=== PATIENT | male | born 2005 | race Two or more races ===

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

== ENCOUNTER 2023-01-26 16:53 | Emergency (ER) | payer MEDICAID ==
[~2023-01-26] VITALS: Ht 149.9 cm; Wt 50.6 kg
[~2023-01-26 16:53] MED LIST changes: +BACI50OI TOP; +BACTDSTA PO; +MED REC COMMENT; +PRAZ1CAP PO
[2023-01-26] MEDS ORDERED: ACETAMINOPHEN TAB 650MG DOSE (2X325MG) PO ONE (19:20)
[2023-01-26 20:46] LABS: HEMATOCRIT 43.6 % (42.0-52.0); HEMOGLOBIN 14.8 g/dl (13.5-17.5); MEAN CORPUSCULAR HEMOGLOBIN 30.3 pg (27.0-33.0); MEAN CORPUSCULAR HGB CONC 33.9 g/dl (32.0-36.5); MEAN CORPUSCULAR VOLUME 89.2 fl (80.0-96.0); PLATELET COUNT, AUTOMATED 231 10^3/uL (150-450); RED BLOOD COUNT 4.89 10^6/uL (4.30-6.10); WHITE BLOOD COUNT 8.2 10^3/uL (4.0-10.0)
[2023-01-26 21:09] LABS: ETHYL ALCOHOL (ETHANOL) < 0.003 % (0.000-0.010)
[2023-01-26 21:11] LABS: SALICYLATE LEVEL < 3.0 MG/DL (<30)
[2023-01-26 21:13] LABS: THYROID STIMULATING HORMONE 0.227 uIU/ML (0.48-4.17)
[2023-01-26 21:32] LABS: ALBUMIN 3.5 G/DL (3.2-5.2); ALKALINE PHOSPHATASE 210 U/L (46-116); ALT/SGPT 1538 U/L (7.0-40); AST/SGOT 800 U/L (<34); BILIRUBIN,DIRECT 0.3 MG/DL (<0.4); BILIRUBIN,TOTAL 0.5 MG/DL (0.3-1.2); BLOOD UREA NITROGEN 15 MG/DL (9-23); CALCIUM LEVEL 8.4 MG/DL (8.5-10.1); CARBON DIOXIDE LEVEL 26 MMOL/L (20-31); CHLORIDE LEVEL 104 MMOL/L (98-107); CREATININE FOR GFR 0.63 MG/DL (0.70-1.30); GLUCOSE, FASTING 124 MG/DL (60-100); POTASSIUM SERUM 4.1 MMOL/L (3.5-5.1); SODIUM LEVEL 138 MMOL/L (136-145); TOTAL PROTEIN 6.6 G/DL (5.7-8.2)
[2023-01-26 21:45] LABS: BARBITURATES URINE NEGATIVE (NEGATIVE); BENZODIAZEPINES URINE NEGATIVE (NEGATIVE); COCAINE METABOLITE URINE NEGATIVE (NEGATIVE); METHADONE URINE NEGATIVE (NEGATIVE)
[2023-01-26 21:46] LABS: AMPHETAMINES LEVEL URINE POSITIVE (NEGATIVE); CANNABINOIDS URINE POSITIVE (NEGATIVE); OPIATES URINE NEGATIVE (NEGATIVE); PHENCYCLIDINE URINE NEGATIVE (NEGATIVE)
[2023-01-27] MEDS ORDERED: PRAZ1CAP PO (02:10)
[2023-01-27] MEDS ORDERED: TRAZ-252 PO (02:10)
[2023-01-27] MEDS ORDERED: SERT50TA29 PO (02:10)
[2023-01-27] MEDS ORDERED: ARIP1TAB4 PO (02:10)
[2023-01-27] MEDS ORDERED: med rec comment (02:11)
[2023-01-27] MEDS ORDERED: HOME MED LIST COMPLETE! XX SCH (02:15)
[2023-01-28] MEDS ORDERED: SERTRALINE HCL 50 MG TAB PO SCH (09:00)
[2023-01-28] MEDS ORDERED: ARIPiprazole 2 MG TAB PO SCH (09:00)
[2023-01-28 09:02] VITALS: BP 114/73; TEMP 97.9; O2SAT 100
[2023-01-28] MEDS ORDERED: PRAZOSIN 1 MG CAP PO SCH (21:00)
== END 2023-01-28 09:05 | disposition home or self-care (01) ==
LOC: M ED 16:53
DX: F32.A Depression, unspecified (principal); R94.5 Abnormal results of liver function studies; Y04.0XXA Assault by unarmed brawl or fight, initial encounter; Y92.9 Unspecified place or not applicable; Z88.0 Allergy status to penicillin

== ENCOUNTER 2023-04-10 12:36 | Emergency (ER) | payer MEDICAID ==
[~2023-04-10] VITALS: Ht 149.9 cm; Wt 53.6 kg
[2023-04-10 12:36] VITALS: O2SAT 99
[~2023-04-10 12:36] MED LIST changes: +ARIP1TAB4 PO; +med rec comment
[2023-04-10] MEDS ORDERED: MED REC IN PROGRESS XX SCH (13:15)
[2023-04-10 13:26] LABS: BASO % 0.5 % (0.0-1.0); EOS # 0.1 10^3/uL (0.0-0.5); HEMATOCRIT 47.6 % (42.0-52.0); HEMOGLOBIN 16.4 g/dl (13.5-17.5); LYMPH % 29.8 % (24.0-44.0); MEAN CORPUSCULAR HEMOGLOBIN 30.9 pg (27.0-33.0); MEAN CORPUSCULAR HGB CONC 34.5 g/dl (32.0-36.5); MEAN CORPUSCULAR VOLUME 89.8 fl (80.0-96.0); MONO # 0.8 10^3/uL (0.0-0.8); MONO % 12.6 % (2.0-8.0); NEUTROPHILS # 3.6 10^3/uL (1.5-8.5); NEUTROPHILS % 54.8 % (36.0-66.0); PLATELET COUNT, AUTOMATED 232 10^3/uL (150-450); WHITE BLOOD COUNT 6.6 10^3/uL (4.0-10.0)
[2023-04-10] MEDS ORDERED: HOME MED LIST COMPLETE! XX SCH (13:35)
[2023-04-10 13:53] LABS: ETHYL ALCOHOL (ETHANOL) < 0.003 % (0.000-0.010); LIPASE 55 U/L (12-53)
[2023-04-10 13:55] LABS: ALBUMIN 3.9 G/DL (3.2-5.2); ALKALINE PHOSPHATASE 147 U/L (46-116); ALT/SGPT 711 U/L (7.0-40); AST/SGOT 334 U/L (<34); BILIRUBIN,DIRECT 0.2 MG/DL (<0.4); BILIRUBIN,TOTAL 0.4 MG/DL (0.3-1.2); BLOOD UREA NITROGEN 8 MG/DL (9-23); CALCIUM LEVEL 9.3 MG/DL (8.5-10.1); CARBON DIOXIDE LEVEL 31 MMOL/L (20-31); CHLORIDE LEVEL 103 MMOL/L (98-107); CREATININE FOR GFR 0.69 MG/DL (0.70-1.30); GLUCOSE, FASTING 78 MG/DL (60-100); POTASSIUM SERUM 4.3 MMOL/L (3.5-5.1); SALICYLATE LEVEL < 3.0 MG/DL (<30); SODIUM LEVEL 140 MMOL/L (136-145); TOTAL PROTEIN 7.6 G/DL (5.7-8.2)
[2023-04-10 13:57] LABS: THYROID STIMULATING HORMONE 0.532 uIU/ML (0.48-4.17)
[2023-04-10 14:29] LABS: BARBITURATES URINE NEGATIVE (NEGATIVE); BENZODIAZEPINES URINE NEGATIVE (NEGATIVE)
[2023-04-10 14:30] LABS: COCAINE METABOLITE URINE NEGATIVE (NEGATIVE); METHADONE URINE NEGATIVE (NEGATIVE); OPIATES URINE NEGATIVE (NEGATIVE); PHENCYCLIDINE URINE NEGATIVE (NEGATIVE)
[2023-04-10 14:32] LABS: AMPHETAMINES LEVEL URINE POSITIVE (NEGATIVE); CANNABINOIDS URINE POSITIVE (NEGATIVE)
[2023-04-10 17:04] VITALS: BP 135/62; TEMP 98.5
[2023-04-10] MEDS ORDERED: COLA100C5 PO (19:33)
[2023-04-10] MEDS ORDERED: MIRA3350 PO (19:33)
== END 2023-04-10 19:59 | disposition home or self-care (01) ==
LOC: M ED 12:36
DX: K59.00 Constipation, unspecified (principal); B19.20 Unspecified viral hepatitis C without hepatic coma; R74.01 Elevation of levels of liver transaminase levels; F43.10 Post-traumatic stress disorder, unspecified; Z88.0 Allergy status to penicillin

== ENCOUNTER 2024-06-25 22:14 | Emergency (ER) | payer MEDICAID ==
[~2024-06-25] VITALS: Ht 149.9 cm; Wt 49.1 kg
[~2024-06-25 22:14] MED LIST changes: +COLA100C5 PO; +MIRA3350 PO
[2024-06-25] MEDS: ACETAMINOPHEN 500 MG TAB PO ONE (22:43)
[2024-06-25] MEDS: IBUPROFEN 600MG TAB PO ONE (22:44)
[2024-06-25] MEDS: OLANZapine ORAL DISINTEGRATING TAB 5MG PO ONE (23:03)
[2024-06-25] MEDS: LORazepam 2 MG TAB PO STA (23:03)
[2024-06-26 00:03] LABS: KETONE, URINE AUTO RFX TRACE mg/dL (NEGATIVE); LEUKOCYTE ESTERASE UR AUTO RFX NEGATIVE (NEGATIVE); MUCUS, URINE RFX SMALL (NEGATIVE); NITRITE, URINE AUTO RFX NEGATIVE (NEGATIVE); RBC, URINE AUTO RFX 0 /HPF (0-3); SQUAM EPITHELIAL CELL UR AURFX 0 /HPF (0-6); WBC, URINE AUTO RFX 1 /HPF (0-3)
[2024-06-26] MEDS: OSELTAMIVIR PHOSPHATE 75 MG CAP PO ONE (00:08)
[2024-06-26 00:16] LABS: HEMATOCRIT 42.6 % (42.0-52.0); HEMOGLOBIN 14.8 g/dl (13.5-17.5); MEAN CORPUSCULAR HEMOGLOBIN 30.3 pg (27.0-33.0); MEAN CORPUSCULAR HGB CONC 34.7 g/dl (32.0-36.5); MEAN CORPUSCULAR VOLUME 87.1 fl (80.0-96.0); PLATELET COUNT, AUTOMATED 174 10^3/uL (150-450); RED BLOOD COUNT 4.89 10^6/uL (4.30-6.10); WHITE BLOOD COUNT 10.9 10^3/uL (4.0-10.0)
[2024-06-26 00:21] LABS: BARBITURATES URINE NEGATIVE (NEGATIVE); BENZODIAZEPINES URINE NEGATIVE (NEGATIVE); METHADONE URINE NEGATIVE (NEGATIVE); OPIATES URINE NEGATIVE (NEGATIVE); PHENCYCLIDINE URINE NEGATIVE (NEGATIVE)
[2024-06-26 00:24] LABS: AMPHETAMINES LEVEL URINE POSITIVE (NEGATIVE); CANNABINOIDS URINE POSITIVE (NEGATIVE); COCAINE METABOLITE URINE POSITIVE (NEGATIVE); ETHYL ALCOHOL (ETHANOL) < 0.003 % (0.000-0.010)
[2024-06-26 00:25] LABS: SALICYLATE LEVEL < 3.0 MG/DL (<30)
[2024-06-26 00:26] LABS: ALBUMIN 3.9 G/DL (3.2-5.2); ALKALINE PHOSPHATASE 68 U/L (40-129); ALT/SGPT 87 U/L (7.0-40); AST/SGOT 82 U/L (<34); BILIRUBIN,DIRECT 0.2 MG/DL (<0.4); BILIRUBIN,TOTAL 0.5 MG/DL (0.3-1.2); BLOOD UREA NITROGEN 15 MG/DL (9-23); CALCIUM LEVEL 8.5 MG/DL (8.5-10.1); CARBON DIOXIDE LEVEL 25 MMOL/L (20-31); CHLORIDE LEVEL 96 MMOL/L (98-107); CREATININE FOR GFR 0.73 MG/DL (0.70-1.30); GLOMERULAR FILTRATION RATE > 90.0 (>60); GLUCOSE, FASTING 90 MG/DL (60-100); POTASSIUM SERUM 3.6 MMOL/L (3.5-5.1); SODIUM LEVEL 132 MMOL/L (136-145); TOTAL PROTEIN 7.4 G/DL (5.7-8.2)
[2024-06-26 00:27] LABS: THYROID STIMULATING HORMONE 1.511 uIU/ML (0.48-4.17)
[2024-06-26] MEDS ORDERED: HYDR50TA70 PO (00:47)
[2024-06-26] MEDS ORDERED: PRAZ2CAP PO (00:47)
[2024-06-26] MEDS ORDERED: QUET1TAB17 PO ×2 (00:47)
[2024-06-26] MEDS ORDERED: HOME MED LIST COMPLETE! XX SCH (00:55)
[2024-06-26 01:05] LABS: Trichomonas vaginalis (AMP) NOT DETECTED (NEGATIVE)
[2024-06-26 01:28] LABS: GC DNA AMPLIFICATION NEGATIVE (NEGATIVE)
[2024-06-26] MEDS: OSELTAMIVIR PHOSPHATE 75 MG CAP PO SCH (09:44)
[2024-06-26 20:43] VITALS: BP 128/60
[2024-06-26 21:53] VITALS: TEMP 98.9; O2SAT 98
[2024-06-26] MEDS ORDERED: OSEL75CA PO (21:53)
== END 2024-06-26 22:31 | disposition home or self-care (01) ==
LOC: M ED 22:14 → EDBD 22:14 → M ED 06-26 22:31
DX: F14.959 Cocaine use, unspecified with cocaine-induced psychotic disorder, unspecified (principal); J09.X2 Influenza due to identified novel influenza A virus with other respiratory manifestations; F17.210 Nicotine dependence, cigarettes, uncomplicated; F19.10 Other psychoactive substance abuse, uncomplicated; F12.10 Cannabis abuse, uncomplicated; Z88.0 Allergy status to penicillin; Z79.899 Other long term (current) drug therapy

== ENCOUNTER 2024-06-27 20:49 | Emergency (ER) | payer MEDICAID ==
[~2024-06-27] VITALS: Ht 149.9 cm; Wt 51.2 kg
[~2024-06-27 20:49] MED LIST changes: +HYDR50TA70 PO; +OSEL75CA PO; +PRAZ2CAP PO; +QUET1TAB17 PO
[2024-06-27] MEDS: ONDANSETRON 4MG ORAL DISINTEGRATING TAB PO ONE (23:41)
[2024-06-28 00:29] VITALS: BP 112/62; TEMP 97.9; O2SAT 98
== END 2024-06-28 00:30 | disposition home or self-care (01) ==
LOC: M ED 20:49 → EDBD 20:49 → M ED 06-28 00:30
DX: R11.0 Nausea (principal); F17.210 Nicotine dependence, cigarettes, uncomplicated; F19.10 Other psychoactive substance abuse, uncomplicated; Z88.0 Allergy status to penicillin; Z79.899 Other long term (current) drug therapy

== ENCOUNTER 2024-09-08 19:40 | Emergency (ER) | payer MEDICAID, OTHER ==
[2024-09-08 19:59] VITALS: BP 126/82; TEMP 98
[2024-09-08 20:25] VITALS: O2SAT 97
[2024-09-08] MEDS ORDERED: DOXE50CA PO (22:14)
[2024-09-08] MEDS ORDERED: PRAZ2CAP PO (22:17)
[2024-09-08] MEDS ORDERED: ARIP1TAB PO (22:17)
[2024-09-08] MEDS ORDERED: IBUP200T46 PO (23:19)
[2024-09-08] MEDS ORDERED: ONETAB9 PO (23:19)
[2024-09-09] MEDS ORDERED: MAVY1TAB PO (08:41)
[2024-09-09] MEDS ORDERED: HYDR50TA70 PO (13:44)
[2024-09-09] MEDS ORDERED: ARIP1TAB PO (13:44)
[2024-09-09] MEDS ORDERED: DOXE50CA PO (13:44)
== END 2024-09-08 21:00 | disposition left against medical advice (07) ==
LOC: M ED 19:40
DX: F19.10 Other psychoactive substance abuse, uncomplicated (principal); F15.10 Other stimulant abuse, uncomplicated; F10.10 Alcohol abuse, uncomplicated; Z88.0 Allergy status to penicillin; Z79.1 Long term (current) use of non-steroidal anti-inflammatories (NSAID); Z79.899 Other long term (current) drug therapy; Z53.9 Procedure and treatment not carried out, unspecified reason

== ENCOUNTER 2024-09-08 21:03 | Inpatient (IN) | payer MEDICAID, OTHER ==
[~2024-09-08] VITALS: Ht 152.4 cm; Wt 52.3 kg
[2024-09-08 21:45] LABS: PLATELET COUNT, AUTOMATED 297 10^3/uL (150-450)
[2024-09-08 22:06] LABS: BARBITURATES URINE NEGATIVE (NEGATIVE); BENZODIAZEPINES URINE NEGATIVE (NEGATIVE); COCAINE METABOLITE URINE NEGATIVE (NEGATIVE); METHADONE URINE NEGATIVE (NEGATIVE); OPIATES URINE NEGATIVE (NEGATIVE); PHENCYCLIDINE URINE NEGATIVE (NEGATIVE)
[2024-09-08 22:07] LABS: AMPHETAMINES LEVEL URINE POSITIVE (NEGATIVE); CANNABINOIDS URINE POSITIVE (NEGATIVE)
[2024-09-08 22:08] LABS: ETHYL ALCOHOL (ETHANOL) 0.006 % (0.000-0.010)
[2024-09-08 22:10] LABS: SALICYLATE LEVEL < 3.0 MG/DL (<30)
[2024-09-08 22:13] LABS: ALT/SGPT 218 U/L (7.0-40); AST/SGOT 110 U/L (<34); CALCIUM LEVEL 9.9 MG/DL (8.5-10.1); CARBON DIOXIDE LEVEL 25 MMOL/L (20-31); CHLORIDE LEVEL 106 MMOL/L (98-107); CREATININE FOR GFR 0.80 MG/DL (0.70-1.30); GLOMERULAR FILTRATION RATE > 90.0 (>60); POTASSIUM SERUM 4.0 MMOL/L (3.5-5.1); SODIUM LEVEL 145 MMOL/L (136-145)
[2024-09-08] MEDS ORDERED: DOXE50CA PO (22:14)
[2024-09-08] MEDS ORDERED: PRAZ2CAP PO (22:17)
[2024-09-08] MEDS ORDERED: ARIP1TAB PO (22:17)
[2024-09-08] MEDS: PRAZOSIN 1 MG CAP PO ONE (22:51)
[2024-09-08] MEDS ORDERED: IBUP200T46 PO (23:19)
[2024-09-08] MEDS ORDERED: ONETAB9 PO (23:19)
[2024-09-08] MEDS ORDERED: HOME MED LIST COMPLETE! XX SCH (23:30)
[2024-09-09] MEDS: IBUPROFEN 600 MG TAB PO ONE (02:18)
[2024-09-09] MEDS: DOXEPIN 25 MG CAP PO ONE (02:18)
[2024-09-09] MEDS ORDERED: traZODone 50 MG TAB PO PRN (03:05)
[2024-09-09] MEDS ORDERED: MAALOX 30 ML SUSP *UDC PO PRN (03:05)
[2024-09-09] MEDS ORDERED: ACETAMINOPHEN 325 MG TAB PO PRN (03:05)
[2024-09-09] MEDS ORDERED: IBUPROFEN 400 MG TAB PO PRN (03:05)
[2024-09-09] MEDS ORDERED: MOM 30 ML SUSPENSION UDC PO PRN (03:05)
[2024-09-09 04:06] VITALS: BP 100/78; TEMP 97.8; O2SAT 97
[2024-09-09] MEDS ORDERED: MAVY1TAB PO (08:41)
[2024-09-09] MEDS ORDERED: DOXE50CA PO (13:44)
[2024-09-09] MEDS ORDERED: HYDR50TA70 PO (13:44)
[2024-09-09] MEDS ORDERED: ARIP1TAB PO (13:44)
[2024-09-09] MEDS ORDERED: DOXEPIN 25 MG CAP PO SCH (21:00)
[2024-09-09] MEDS ORDERED: PRAZOSIN 1 MG CAP PO SCH (21:00)
== END 2024-09-09 14:31 | disposition home or self-care (01) | DRG 776 ==
LOC: M ED 21:03 → M ED INP 09-09 03:04 → M PSY 09-09 03:57
PROVIDERS: ADMIT Psychiatry & Neurology Neurology; ATTEND General Practice
DX: F15.288 Other stimulant dependence with other stimulant-induced disorder (principal); F17.210 Nicotine dependence, cigarettes, uncomplicated; Z76.5 Malingerer [conscious simulation]; G47.00 Insomnia, unspecified; Z59.00 Homelessness unspecified; Z56.0 Unemployment, unspecified; F12.10 Cannabis abuse, uncomplicated; Z91.51 Personal history of suicidal behavior; Z79.899 Other long term (current) drug therapy; Z88.0 Allergy status to penicillin

== ENCOUNTER 2024-10-19 02:37 | Emergency (ER) | payer OTHER ==
[~2024-10-19] VITALS: Ht 149.9 cm; Wt 49.3 kg
[~2024-10-19 02:37] MED LIST changes: +ARIP1TAB PO; +DOXE50CA PO; +IBUP200T46 PO; +MAVY1TAB PO; +ONETAB9 PO
[2024-10-19 07:51] LABS: PLATELET COUNT, AUTOMATED 281 10^3/uL (150-450)
[2024-10-19] MEDS: DOXEPIN 25 MG CAP PO ONE (08:01)
[2024-10-19 08:09] LABS: AMPHETAMINES LEVEL URINE POSITIVE (NEGATIVE); BARBITURATES URINE NEGATIVE (NEGATIVE); BENZODIAZEPINES URINE NEGATIVE (NEGATIVE); CANNABINOIDS URINE POSITIVE (NEGATIVE); COCAINE METABOLITE URINE NEGATIVE (NEGATIVE); ETHYL ALCOHOL (ETHANOL) < 0.003 % (0.000-0.010); METHADONE URINE NEGATIVE (NEGATIVE); OPIATES URINE NEGATIVE (NEGATIVE); PHENCYCLIDINE URINE NEGATIVE (NEGATIVE)
[2024-10-19 08:11] LABS: SALICYLATE LEVEL < 3.0 MG/DL (<30)
[2024-10-19 08:12] LABS: ALT/SGPT 88 U/L (7.0-40); AST/SGOT 58 U/L (<34); CALCIUM LEVEL 9.0 MG/DL (8.5-10.1); CARBON DIOXIDE LEVEL 29 MMOL/L (20-31); CHLORIDE LEVEL 105 MMOL/L (98-107); CREATININE FOR GFR 0.80 MG/DL (0.70-1.30); GLOMERULAR FILTRATION RATE > 90.0 (>60); POTASSIUM SERUM 4.3 MMOL/L (3.5-5.1); SODIUM LEVEL 143 MMOL/L (136-145)
[2024-10-19] MEDS ORDERED: OVERDOSE RESCUE KIT XX SCH (13:35)
[2024-10-19 14:16] VITALS: BP 109/73; TEMP 98.1; O2SAT 99
== END 2024-10-19 14:18 | disposition home or self-care (01) ==
LOC: M ED 02:37
DX: Z76.5 Malingerer [conscious simulation] (principal); K21.9 Gastro-esophageal reflux disease without esophagitis; F15.10 Other stimulant abuse, uncomplicated; Z88.0 Allergy status to penicillin; Z79.1 Long term (current) use of non-steroidal anti-inflammatories (NSAID); Z79.899 Other long term (current) drug therapy; Z79.810 Long term (current) use of selective estrogen receptor modulators (SERMs)

== ENCOUNTER → 2024-10-20 | Outpatient (REF) | payer OTHER ==
[2024-10-20 17:58] LABS: HIV 1&2 SCREEN NEGATIVE (NEGATIVE)
[2024-10-22 13:17] LABS: HEPATITIS A IgG TOTAL REACTIVE (NON-REACTIVE); HEPATITIS B CORE ANTIBODY IGG NON-REACTIVE (NON-REACTIVE); HEPATITIS B SURF AB QUANT < 5 mIU/mL (> OR = 10)
[2024-10-24 18:06] LABS: HEPATITIS C VIRUS GENOTYPE 3 (.)
[2024-10-26 14:53] LABS: ALPHA 2-MACROGLOBULINS,QN 247 mg/dL (106-279); ALT (SGPT) P5P 63 U/L (9-46); APOLIPOPROTEIN A-1 137 mg/dL (94-176); FIBROSIS SCORE 0.09; FIBROSIS STAGE NO FIBROSIS (F0); GGT 11 U/L (3-70); HAPTOGLOBIN 186 mg/dL (43-212); NECROINFLAM ACT GRADE MINIMAL ACTIVITY (A0); NECROINFLAM ACT SCORE 0.30
== END ==
LOC: M LAB REF 16:21
PROVIDERS: ATTEND Family Medicine Addiction Medicine
DX: Z86.19 Personal history of other infectious and parasitic diseases (principal)

== ENCOUNTER 2024-12-23 16:03 | Emergency (ER) | payer OTHER ==
[~2024-12-23] VITALS: Ht 149.9 cm; Wt 49.9 kg
[2024-12-23 18:27] LABS: KETONE, URINE AUTO RFX NEGATIVE (NEGATIVE); LEUKOCYTE ESTERASE UR AUTO RFX NEGATIVE (NEGATIVE); MUCUS, URINE RFX SMALL (NEGATIVE); NITRITE, URINE AUTO RFX NEGATIVE (NEGATIVE); RBC, URINE AUTO RFX 0 /HPF (0-3); SQUAM EPITHELIAL CELL UR AURFX 0 /HPF (0-6); WBC, URINE AUTO RFX 4 /HPF (0-3)
[2024-12-23] MEDS: ONDANSETRON 4MG ORAL DISINTEGRATING TAB PO ONE (19:15)
[2024-12-23 19:19] LABS: Trichomonas vaginalis (AMP) NOT DETECTED (NEGATIVE)
[2024-12-23 19:42] LABS: GC DNA AMPLIFICATION NEGATIVE (NEGATIVE)
[2024-12-23 19:43] VITALS: BP 133/84; TEMP 97.1; O2SAT 100
== END 2024-12-23 20:53 | disposition left against medical advice (07) ==
LOC: M ED 16:03
DX: Z53.21 Procedure and treatment not carried out due to patient leaving prior to being seen by health care provider (principal)